=== PATIENT | male | born 1995 | race Caucasian/White ===

== ENCOUNTER 2018-10-07 13:02 | Day surgery (SDC) | payer OTHER ==
[2018-10-07] VITALS (13 sets, daily range): BP systolic 119–154; BP diastolic 68–83; PULSE 60–98; RESP 15–35; Ht 175.3 cm; Wt 82.8 kg
[~2018-10-07] VITALS: Ht 175.3 cm; Wt 82.8 kg
[~2018-10-07 13:02] MED LIST: MELO7.5O PO
[2018-10-07] MEDS ORDERED: BUPIVACAINE 0.25% (MPF) 30 ML INJ ONE (13:23)
--- NOTE | 2018-10-07 13:56 | PREAC ---
Date/Time of Note Date/Time of Note DATE: 10/07/18 TIME: 13:55 Anesthesia Eval and Record Evaluation Time Pre-Procedure Interview DATE: 10/07/18 TIME: 13:55 Age 23 Sex male NPO: 8 hrs Preoperative diagnosis cholelithiasis Planned procedure lap claudia Past Medical History Past Medical History: None Surgery & Anesthesia Issues Significant blood loss, No known issue Meds Anticoagulation: No Beta [place] within 24 hr: No Reason Beta [place] not given: Pt. not on B-[place] Reported Medications Meloxicam* (Meloxicam*) 7.5 Mg/5 Ml Oral.susp, 15 MG PO DAILY, #300 ML 10/07/18 Current Medications Cefazolin Sodium/ Dextrose 50 ml @ 100 mls/hr PRE-OP ONCE IVPB ; Start 10/07/18 at 14:00; Stop 10/07/18 at 14:29 Sodium Chloride 1,000 ml @ 75 mls/hr [id number] ONCE IV Last administered on 10/07/18at 13:41; Admin Dose 75 MLS/HR; Start 10/07/18 at 14:00; Stop 10/08/18 at 03:19 Meds reviewed: Yes Allergies Coded Allergies: No Known Drug Allergies (Verified Allergy, Unknown, 10/07/18) Allergies Reviewed: Yes Labs/Studies Labs Reviewed: Reviewed by anesthesiologist test: N/A Studies: ECG (n/a), CXR (n/a) Pre-procedure Exam Airway: Adequate mouth opening Mallampati: Mallampati I Teeth: Normal Lung: Normal Heart: Normal ASA Physical Status ASA physical status: 1 Emergency: None Planned Anesthetic General/MAC: ETT Nerve block: TAP (bilateral) Planned Pain Management Single shot nerve block, Parenteral pain med Pre-operative Attestations Prior to commencing anesthesia and surgery, the patient was re-evaluated, there was verification of: *The patient's identity *The results of appropriate recent lab work and preoperative vital signs *The above evaluation not changing prior to induction *Anesthetic plan, risk benefits, alternative and complications discussed with patient/family; questions answered; patient/family understands, accepts and wishes to proceed. REY GALAVIZ MD Oct 07, 2018 13:56
[2018-10-07] MEDS ORDERED: SOD CHLORIDE 0.9% 1,000 ML IV ONE (14:00)
[2018-10-07] MEDS ORDERED: DIPHENHYDRAMINE 50 MG INJ IV PRN (14:00)
[2018-10-07] MEDS ORDERED: HYDROmorphONE 1 MG/5 ML IV SYRINGE IV PRN ×2 (14:00)
[2018-10-07] MEDS ORDERED: MEPERIDINE 25 MG INJ IV PRN (14:00)
[2018-10-07] MEDS ORDERED: OXYCODONE/ACETAMINOPHEN (5/325) TAB PO PRN ×2 (14:00)
[2018-10-07] MEDS ORDERED: FENTAnyl 50 MCG/ML VIAL IV PRN ×3 (14:00)
[2018-10-07] MEDS ORDERED: KETOROLAC 30 MG INJ IV PRN (14:00)
[2018-10-07] MEDS ORDERED: CEFAZOLIN 2 GM/50 ML (PMX) 50 ML IVPB ONE (14:00)
[2018-10-07] MEDS ORDERED: ONDANSETRON 4 MG INJ IV PRN (14:00)
[2018-10-07] MEDS ORDERED: PROPOFOL 100 ML ONE (14:01)
[2018-10-07] MEDS ORDERED: ROPIVACAINE 0.5 % 30 ML VIAL ONE (14:01)
[2018-10-07] MEDS ORDERED: MIDAZOLAM 1 MG/ML 2 ML INJ ONE (14:01)
[2018-10-07] MEDS ORDERED: METOCLOPRAMIDE 10 MG INJ ONE (14:02)
[2018-10-07] MEDS ORDERED: ONDANSETRON 4 MG INJ ONE (14:03)
[2018-10-07] MEDS ORDERED: CEFAZOLIN 1 GM INJ ONE (14:03)
[2018-10-07] MEDS ORDERED: NEOSTIGMINE 3 MG/3 ML SYRINGE ONE (14:03)
[2018-10-07] MEDS ORDERED: ROCURONIUM 50 MG INJ ONE (14:03)
[2018-10-07] MEDS ORDERED: KETOROLAC 30 MG INJ ONE (14:03)
[2018-10-07] MEDS ORDERED: GLYCOPYRROLATE 0.4 MG INJ ONE (14:03)
[2018-10-07] MEDS ORDERED: HYDROmorphONE 2 MG/ML SYG ONE (14:34)
[2018-10-07] MEDS ORDERED: HYDROCODONE/APAP (5/325) TAB PO ONE (15:00)
--- NOTE | 2018-10-07 15:04 | OPR ---
Date/Time of Note Date/Time of Note DATE: 10/07/18 TIME: 15:01 Operative Report Procedure Date: Oct 07, 2018 Preoperative Diagnosis symptomatic gallstones Postoperative Diagnosis same Operation/Procedure Performed laparoscopic cholecystectomy Surgeon see signature line Slot Supervisor Armando Peoples Anesthesia Type: general Estimated Blood Loss: 0 - 10 ml's Transfusion none Specimen gallbladder Grafts/Implants none Complications none Pt Condition Post Procedure: stable Indications This is a 23-year-old male with symptomatic gallstones. He request surgical excision of his gallbladder. Risks alternatives benefits and personal were discussed with the patient. Patient expressed understanding and consents to the operation. Procedure Description Patient is taken to the OR and prepped and draped in usual sterile fashion. Surgical timeout was performed. IV antibiotics were given. Infraumbilical transverse incision was made at the 15 blade. Dissection with cautery skin onto the fascia. The fascia was grasped with Marshall[employer] and divided with curved Merida scissors. 0 Vicryl use this was placed into the fascia. Miles trocar was introduced. Pneumoperitoneum was established. Midepigastric 12 mm optical trochars placed under direct visualization. Right upper quadrant upper flank 5 mm optical trochars were placed under direct visualization. Upon initial inspection there appeared to be hydropic gallbladder that was intrahepatic. Initially the gallbladder was decompressed and the contents were sucked out which were clear liquid. It was hydropic. The dome down approach was initially started to allow mobilization of the gallbladder. This allowed retraction of the gallbladder by the fundus and lateral cephalad direction. [place] graspers used to dissect out the cystic duct and cystic artery. The critical view was established. The cystic duct was divided to close proximal to distal and the divisions performed laparoscopic scissors. Cystic artery was divided to close proximal clip distal and the divisions performed lap scopic scissors. The gallbladder signal of the gallbladder bed. Good hemostasis status. The gallbladder is retrieved Endo Catch bag. Irrigation is used to suction out and clean out the area. All ports were removed under direct visualization. 0 Vicryl sutures tied down. Skin is closed and skin lynn. A tap block was provided by the anesthesiology to begin the case. Dry dressings were applied. John OSORIO Oct 07, 2018 15:04
[2018-10-07] MEDS: HYDROmorphONE 1 MG/5 ML IV SYRINGE IV PRN ×2 (15:20→15:34)
--- NOTE | 2018-10-07 20:02 | PAC ---
Date/Time of Note Date/Time of Note DATE: 10/07/18 TIME: 20:02 Post-Anesthesia Notes Post-Anesthesia Note Last documented vital signs Vital Signs Date Temp Pulse Resp B/P (MAP) Pulse Ox O2 O2 Flow FiO2 Time Delivery Rate 10/07/18 97.5 83 16 120/68 99 Room Air 16:08 (85) 10/07/18 6.0 15:25 Activity: WNL Respiratory function: WNL Cardiovascular function: WNL Mental status: Baseline Pain reasonably controlled: Yes Hydration appropriate: Yes Nausea/Vomiting absent: No REY GALAVIZ MD Oct 07, 2018 20:02
== END 2018-10-07 17:02 | disposition home or self-care (01) ==
LOC: SDS 13:02
PROVIDERS: ATTEND Surgery
DX: K80.10 Calculus of gallbladder with chronic cholecystitis without obstruction (principal)
CPT/HCPCS: 47562; 88304; J0690; J1170; J1200; J1885; J2175; J2250; J2405; J2710; J2765; J2795; Z7512; Z7610